=== PATIENT | male | born 1975 | race Caucasian/White ===

== ENCOUNTER 2023-12-01 17:07 | Emergency (ER) | payer SELFPAY ==
[~2023-12-01] VITALS: Ht 188 cm; Wt 90.7 kg
[2023-12-01 17:38] VITALS: BP 129/73; TEMP 98.6; O2SAT 99
[2023-12-01] MEDS ORDERED: BUPR1FIL3 SL (19:41)
[2023-12-01] MEDS ORDERED: ACETAMINOPHEN 325 MG TABLET ONE (19:45)
[2023-12-01] MEDS ORDERED: BUPRENORPHINE HCL 8 MG TAB.SUBL SL ONE ×2 (19:45→20:00)
[2023-12-01] MEDS ORDERED: ACETAMINOPHEN 325 MG TABLET PO ONE (20:00)
== END 2023-12-01 19:50 | disposition home or self-care (01) ==
LOC: ER 17:07
DX: F11.13 Opioid abuse with withdrawal (principal); F41.9 Anxiety disorder, unspecified; R11.0 Nausea; I10 Essential (primary) hypertension; F19.10 Other psychoactive substance abuse, uncomplicated; F17.200 Nicotine dependence, unspecified, uncomplicated; Z60.2 Problems related to living alone